=== PATIENT | female | born 1955 | race Caucasian/White ===

== ENCOUNTER → 2018-10-28 | Outpatient (CLI) | payer MEDICARE, OTHER ==
--- NOTE | 2018-10-28 15:59 | RAD ---
Examination: MRI of the right hip without contrast HISTORY: History of bilateral hip pain COMPARISON: 11/27/2015 TECHNIQUE: Multiplanar, multisequence MR imaging of the right hip was performed without contrast. FINDINGS: The femoral head is within the acetabulum. Moderate joint space loss identified in the right hip joint likely degeneration. The attachment of the hamstring tendons to ischial tuberosity, attachment of the gluteal tendons to the greater trochanter, attachment of the iliopsoas tendon to the lesser trochanter, attachment of the rectus femoris tendon to the anterior inferior iliac spine grossly appears intact. There is increased signal identified in the superior labrum likely tear of the superior labrum with a 2.5 cm paralabral cyst extending anteriorly and posteriorly from superior labrum best visualized on series 8 image #13. Small hip joint effusions similar to prior exam. Small osteophyte formation identified in the superior endplate and inferior femoral head region similar to prior exam likely degeneration IMPRESSION: 1. Superior labral tear with a 2.5 cm paralabral cyst extending anteriorly and posteriorly superior to the superior labrum. 2. Unchanged moderate right hip osteoarthritis with small joint effusion. Electronically signed by: Cj Quinonez MD (10/28/2018 3:55 PM) [facility]
--- NOTE | 2018-10-28 16:23 | RAD ---
Examination: MRI of the left hip without contrast HISTORY: History of worsening left hip pain COMPARISON: None available TECHNIQUE: Multiplanar, multisequence MR imaging of the left hip were performed without contrast. FINDINGS: The left femoral head is within the acetabulum. The attachment of the hamstring tendons to the ischial tuberosity, attachment of the iliopsoas tendon to the lesser trochanter, attachment of the gluteal tendons to the greater trochanter grossly appears intact. Minimal increased T2 signal identified at the attachment of the gluteal tendons likely mild tendinosis. Minimal hip joint effusion is identified. Moderate joint space loss identified in the left hip joint likely secondary to degeneration. Mild superficial fraying of the labrum anteriorly likely degenerative tear of the anterior labrum superiorly with a small labral cyst measuring 1.6 cm anterior to the anterosuperior labrum. Mild increased T2 signal identified in the anterior superior labrum likely mild trabecular edema. IMPRESSION: 1. Degenerative tear of the anterior superior labrum with a small paralabral cyst measuring 1.6 cm extending anteriorly and superiorly from the anterior labrum. 2. Moderate degenerative changes left hip joint. Electronically signed by: Cj Quinonez MD (10/28/2018 4:19 PM) [facility]
== END | disposition home or self-care (01) ==
LOC: MRI 14:13
PROVIDERS: ATTEND Orthopaedic Surgery
DX: S73.191A Other sprain of right hip, initial encounter (principal); S73.192A Other sprain of left hip, initial encounter; M16.0 Bilateral primary osteoarthritis of hip; M25.451 Effusion, right hip; M25.751 Osteophyte, right hip; M25.452 Effusion, left hip; M25.852 Other specified joint disorders, left hip; M25.851 Other specified joint disorders, right hip
CPT/HCPCS: 73721

== ENCOUNTER → 2019-11-23 | Outpatient (CLI) | payer MEDICARE, OTHER ==
--- NOTE | 2019-11-23 11:37 | CARD ---
MR#: [id number] Date of Study: 11/23/2019 Ordering Physician: SKY COBB, Referring Physician: SKY COBB, Tech: Matilda Johnson [facility] APPROVED REPORT EXAM: Two-dimensional and M-mode echocardiogram with Doppler and color Doppler. Other Information Quality : Technically LimitedHR: 77bpm Rhythm : NSRTechnically limited study due to breast implants. INDICATION Dyspnea 2D DIMENSIONS RVDd2.9 (2.9-3.5cm)Left Atrium(2D)3.4 (1.6-4.0cm) IVSd1.1 (0.7-1.1cm)Aortic Root(2D)3.0 (2.0-3.7cm) LVDd2.9 (3.9-5.9cm)LVOT Diameter2.0 (1.8-2.4cm) PWd0.9 (0.7-1.1cm)LVDs2.1 (2.5-4.0cm) FS (%) 27.8 %SV17.5 ml LVEF(%)55.6 (>50%) Aortic Valve AoV Peak Zi.94.1cm/sAoV VTI20.3cm AO Peak GR.3.5mmHgLVOT Peak Zi.88.7cm/s LVOT VTI 20.49cmAO Mean GR.2mmHg MARCELLA (VMAX)2.84qu6IPR (VTI)3.11cm2 Mitral Valve MV E Vegwfcme91.8cm/sMV DECEL [id number] MV A Hqgovide44.8cm/sMV GVL48eh E/A Ratio1.0MVA (PHT)3.42cm2 TDI E/Lateral E'4.6E/Medial E'6.8 Pulmonary Valve PV Peak Fzvzoxbc54.9cm/sPV Peak Grad.2mmHg Tricuspid Valve TR P. Dkhcfgif923wo/sRAP TSSJCJJY9xwFw TR Peak Gr.87dsCiRLIV76rzRo LEFT VENTRICLE The left ventricle is normal size. There is borderline to mild concentric left ventricular hypertroph y. The left ventricular systolic function is normal. The Ejection Fraction is 55-60%. There is normal LV segmental wall motion. Transmitral Doppler flow pattern is Grade I-abnormal relaxation pattern. RIGHT VENTRICLE The right ventricle is normal size. There is normal right ventricular wall thickness. The right ventr icular systolic function is normal. ATRIA The left atrium size is normal. The right atrium size is normal. The interatrial septum is intact wit h no evidence for an atrial septal defect or patent foramen ovale as noted on 2-D or Doppler imaging. AORTIC VALVE The aortic valve is probably trileaflet. Doppler and Color Flow revealed no significant aortic regurg itation. There is no significant aortic valvular stenosis. MITRAL VALVE The mitral valve is normal in structure and function. There is no evidence of mitral valve prolapse. There is no mitral valve stenosis. Doppler and Color-flow revealed trace mitral regurgitation. TRICUSPID VALVE The tricuspid valve is normal in structure and function. Doppler and Color Flow revealed trace tricus pid regurgitation. The PA pressure was estimated at 23 mmHg. There is no tricuspid valve prolapse or vegetation. There is no tricuspid valve stenosis. PULMONIC VALVE The pulmonic valve is not well visualized. GREAT VESSELS The aortic root is normal in size. The ascending aorta is normal in size. The IVC is normal in size a nd collapses >50% with inspiration. PERICARDIAL EFFUSION There is no evidence of significant pericardial effusion. Critical Notification Critical Value: No <Conclusion> The left ventricular systolic function is normal. The Ejection Fraction is 55-60%. There is normal LV segmental wall motion. Trace mitral regurgitation. Trace tricuspid regurgitation. The PA pressure was estimated at 23 mmHg. There is no evidence of significant pericardial effusion. Signed by : Andrea Timmons, Electronically Approved : 11/23/2019 11:37:08
--- NOTE | 2019-11-23 14:01 | RAD ---
MR#: [id number] Date of Study: 11/23/2019 Ordering Physician: SKY COBB, Referring Physician: SKY COBB, Tech: Kelly Marshall RDMS, Cory APPROVED REPORT Patient Location : OUT-PATIENT Indications Lower Extremity Edema : Deep System Deep Venous Thrombosis present : No Findings Grayscale images of the bilateral saphenofemoral junctions are grossly unremarkable. The bilateral greater and lesser saphenous veins do not reveal any evidence of thrombus The right great saphenous vein measures 4 mm in the left great saphenous vein measures 4 mm The bilateral greater and lesser saphenous veins do not show any evidence of reflux. Critical Notification Critical Value: No <Conclusion> 1. No significant reflux in the bilateral greater and lesser saphenous veins Signed by : Harley Lorenzo, Electronically Approved : 11/23/2019 14:01:00
--- NOTE | 2019-11-23 14:02 | RAD ---
MR#: [id number] Date of Study: 11/23/2019 Ordering Physician: SKY COBB, Referring Physician: SKY COBB, Tech: Kelly Marshall RDMS, Cory APPROVED REPORT Bilateral Lower Extremity Venous Study for DVT Patient Location: OUT-PATIENT Indications Lower Extremity Edema: Vein Imaging (Right) CFV (R): Compressible SFJ (R): Compressible FEM (R): Compressible POP (R): Compressible DFV (R): Compressible PTV (R): Compressible GSV (R): Compressible Peroneals (R): Compressible Vein Imaging (Left) CFV (L): Compressible SFJ (L): Compressible FEM (L): Compressible POP (L): Compressible DFV (L): Compressible PTV (L): Compressible GSV (L): Compressible Peroneals (L): Compressible Findings The bilateral lower extremity deep veins were evaluated for thrombus with color Doppler, spectral and grayscale images. On the right the grayscale images of the common femoral, superficial femoral and popliteal veins do n ot demonstrate any evidence of thrombus and these veins appear to be compressible. The below-knee vei ns were not well visualized but grossly appear to be compressible. Spectral imaging and color Doppler do not reveal any evidence of obstruction to flow with normal respirophasic variation above the knee . Below the knee there is spontaneous flow noted. On the left, the grayscale images of the common femoral, superficial femoral and popliteal veins do n ot demonstrate any evidence of thrombus and these veins appear to be compressible. The below-knee vei ns again were not well visualized but grossly appear to be compressible. Spectral imaging and color D oppler do not reveal any evidence of obstruction to flow with normal respirophasic variation above th e knee. The below-knee veins demonstrate spontaneous flow. Critical Notification Critical Value: No <Conclusion> 1. Negative for DVT in the bilateral lower extremities Signed by : Harley Lorenzo, Electronically Approved : 11/23/2019 14:02:12
== END | disposition home or self-care (01) ==
LOC: ECHO 10:20
PROVIDERS: ATTEND Internal Medicine Cardiovascular Disease
DX: I51.7 Cardiomegaly (principal); R60.0 Localized edema
CPT/HCPCS: 93306; 93970

== ENCOUNTER → 2019-12-18 | Outpatient (CLI) | payer MEDICARE, OTHER ==
--- NOTE | 2019-12-19 09:56 | SLEEP ---
DATE OF STUDY: 12/18/2019 SLEEP STUDY REFERRING PHYSICIAN: ROBERT Healy The patient is 64 years old who weighs 110 pounds with a BMI of 29. The patient's [place] score was 17. The patient underwent split night study performed at [facility]. During the night study, the patient spent 462 minutes in bed and slept for 254 minutes with a low sleep efficiency of 55%. Sleep latency was prolonged at 145 minutes with a REM latency of 242 minutes. Sleep architecture showed normal stage 1 and stage 2 sleep, increased slow wave and slightly reduced REM sleep. During the initial diagnostic portion of the study, the patient slept for 71 minutes. During that time, there were 37 obstructive apneas, no mixed or central apneas and 14 hypopneas. The patient's AHI was 43 per hour, supine AHI 55 per hour. REM sleep was not seen during the diagnostic portion. EKG monitoring revealed an average heart rate of 60 beats per minute, no arrhythmias observed. Nocturnal oximetry study revealed a mean oxygen saturation was 95% with the lowest of 79%. 11% time oxygen saturation remained between 80% and 89%. No significant PLM seen. The patient was started on CPAP and titrated up to 9 cm water. At the final pressure, the patient slept for 47 minutes. The patient had supine as well as REM sleep. The patient's AHI was reduced to 0 per hour and oxygen saturation remained above 92%. The patient used small size nasal pillows. IMPRESSION: 1. Severe obstructive sleep apnea at an apnea-hypopnea index of 43 per hour. 2. Nocturnal hypoxia secondary to obstructive sleep apnea, but resolved with CPAP. 3. No clinically significant periodic limb movements of sleep. RECOMMENDATIONS: 1. CPAP at 9 cm water completely eliminated the patient's sleep apnea and should be used on a nightly basis. 2. Follow up in 4-6 weeks to assess compliance with CPAP and to document clinical improvement. 3. Weight loss to the ideal body weight is recommended. 4. Avoid [employer] depressants. 5. Cautioned regarding driving until symptoms of sleep apnea resolve with the use of CPAP. DERIK JORGE MD DR: JENNY/isela JOB#: [id number] / [id number] [place] Barragan
== END | disposition home or self-care (01) ==
LOC: SLPLAB 19:12
DX: G47.33 Obstructive sleep apnea (adult) (pediatric) (principal); G47.34 Idiopathic sleep related nonobstructive alveolar hypoventilation
CPT/HCPCS: 95810